=== PATIENT | male | born 1990 | race Caucasian/White ===

== ENCOUNTER 2016-08-14 00:13 | Emergency (ER) | payer MEDICAID ==
[~2016-08-14] VITALS: Ht 177.8 cm; Wt 105.6 kg
[~2016-08-14 00:13] MED LIST: ARIP10TA13 PO; BENZ1TAB61 PO; DIVA500T4 PO; HALO5AMP3 PO; HALO5TAB5 PO; LORA-446 PO; RISP0.2518 PO; RISP2TAB35 PO
[2016-08-14 00:14] VITALS: BP 129/87
== END 2016-08-14 00:59 | disposition home or self-care (01) ==
LOC: ED 00:53
DX: L01.01 Non-bullous impetigo (principal); F20.9 Schizophrenia, unspecified
CPT/HCPCS: 99283

== ENCOUNTER 2016-08-23 14:06 | Emergency (ER) | payer MEDICAID ==
[~2016-08-23] VITALS: Ht 160 cm; Wt 103.5 kg
[2016-08-23 14:08] VITALS: BP 137/86
[2016-08-23] MEDS ORDERED: HYDROcodone/APAP 5/325 TABLET ONE (14:44)
[2016-08-23] MEDS ORDERED: HYDROcodone/APAP 5/325 TABLET PO ONE (15:00)
== END 2016-08-23 15:55 | disposition home or self-care (01) ==
LOC: ED 15:30
DX: S40.022A Contusion of left upper arm, initial encounter (principal); X58.XXXA Exposure to other specified factors, initial encounter; Y93.89 Activity, other specified; Y92.89 Other specified places as the place of occurrence of the external cause; Y99.8 Other external cause status
CPT/HCPCS: 99284

== ENCOUNTER 2017-12-08 02:07 | Emergency (ER) | payer MEDICAID ==
[~2017-12-08] VITALS: Ht 167.6 cm; Wt 108.5 kg
[~2017-12-08 02:07] MED LIST changes: -ARIP10TA13 PO; +ARIP10TA33 PO
[2017-12-08 02:09] VITALS: BP 157/114
[2017-12-08] MEDS ORDERED: ZIPRASIDONE 20 MG INJ IM ONE ×2 (03:00→03:04)
== END 2017-12-08 03:56 | disposition home or self-care (01) ==
LOC: ED 03:00
DX: F41.1 Generalized anxiety disorder (principal)
CPT/HCPCS: 96372; 99283; J3486

== ENCOUNTER 2017-12-13 07:28 | Observation (INO) | payer MEDICAID ==
[~2017-12-13] VITALS: Ht 177.8 cm; Wt 83.0 kg
[2017-12-13] MEDS ORDERED: LORazepam 1MG TABLET ONE (07:52)
[2017-12-13] MEDS ORDERED: ZIPRASIDONE 20 MG INJ IM PRN (08:00)
[2017-12-13] MEDS ORDERED: LORazepam 1MG TABLET PO ONE (08:00)
[2017-12-13 08:06] LABS: BASOPHILS # (AUTO) 0.07 x10^3/uL (0-0.1); BASOPHILS % (AUTO) 1 % (0-1); EOSINOPHILS # (AUTO) 0.08 x10^3/uL (0-0.4); EOSINOPHILS % (AUTO) 1 % (1-7); LYMPHOCYTES # (AUTO) 3.51 x10^3/uL (1-3.4); LYMPHOCYTES % (AUTO) 33 % (22-44); MD NO; MEAN CORPUSCULAR HEMOGLOBIN 29.9 pg (27.5-34.5); MEAN CORPUSCULAR HGB CONC 33.8 g/dL (33.2-36.2); MEAN CORPUSCULAR VOLUME 88.4 fL (81-97); MEAN PLATELET VOLUME 7.5 fL (7.4-10.4); MONOCYTES # (AUTO) 0.77 x10^3/uL (0.2-0.8); MONOCYTES % (AUTO) 7 % (2-9); NEUTROPHILS # (AUTO) 6.11 x10^3/uL (1.8-6.8); NEUTROPHILS % (AUTO) 58 % (42-75); PLATELET COUNT 326 x10^3/uL (130-400); RED BLOOD COUNT 4.97 x10^6/uL (4.38-5.82); RED CELL DISTRIBUTION WIDTH 13.2 % (9.4-14.8)
[2017-12-13 08:19] LABS: ANION GAP 10 mmol/L (5-15); CALCIUM 8.7 mg/dL (8.5-10.1); CHLORIDE 105 mmol/L (98-107); CREATININE 0.91 mg/dL (0.7-1.3)
[2017-12-13 08:20] LABS: ALANINE AMINOTRANSFERASE 35 U/L (12-78); ALBUMIN 3.9 g/dL (3.4-5.0)
[2017-12-13 08:22] LABS: ALKALINE PHOSPHATASE 67 U/L (45-117); BILIRUBIN,TOTAL 0.8 mg/dL (0.2-1.0); TOTAL PROTEIN 7.5 g/dL (6.4-8.2)
[2017-12-13 08:30] LABS: ACETAMINOPHEN < 2 mcg/mL (10-30); SALICYLATE LEVEL < 1.7 mg/dL (2.8-20.0)
[2017-12-13] MEDS ORDERED: ZIPRASIDONE 20MG CAPSULE ONE (13:29)
[2017-12-13] MEDS ORDERED: ZIPRASIDONE 20MG CAPSULE PO ONE (14:00)
[2017-12-13] MEDS ORDERED: ZIPRASIDONE 20MG CAPSULE PO SCH (14:00)
[2017-12-13] MEDS ORDERED: LORazepam 1MG TABLET PO PRN (16:00)
[2017-12-13 23:54] LABS: AMPHETAMINE SCREEN, URINE Positive (Negative); BARBITURATE SCREEN, URINE Negative (Negative); BENZODIAZEPINE SCREEN, URINE Negative (Negative); CANNABINOID SCREEN, URINE Positive (Negative); COCAINE SCREEN, URINE Negative (Negative); METHADONE SCREEN, URINE Negative (Negative); OPIATE SCREEN, URINE Negative (Negative)
[2017-12-14] MEDS ORDERED: ZIPRASIDONE 20 MG INJ IM ONE ×2 (03:14→03:30)
[2017-12-14] MEDS ORDERED: ACETAMINOPHEN 325 MG TABLET PO PRN (11:30)
[2017-12-14] MEDS ORDERED: OLANZAPINE 5 MG TABLET ONE (12:57)
[2017-12-14] MEDS: OLANZAPINE 5 MG TABLET PO PRN (13:05)
[2017-12-14 15:31] VITALS: BP 119/77
[2017-12-14] MEDS ORDERED: FLUO20CA19 PO (16:59)
[2017-12-14] MEDS ORDERED: HYDR25CA94 PO (17:00)
[2017-12-14] MEDS ORDERED: OLAN15TA9 PO (17:02)
[2017-12-14] MEDS ORDERED: RISP2TAB3 PO (17:03)
[2017-12-14 19:30] VITALS: BP 102/70
[2017-12-14] MEDS: ZIPRASIDONE 20 MG INJ IM PRN (19:55)
[2017-12-15] MEDS: ZIPRASIDONE 20 MG INJ IM PRN (03:20)
[2017-12-15 08:00] VITALS: BP 119/86
[2017-12-15] MEDS: OLANZAPINE 5 MG TABLET PO PRN (08:25)
[2017-12-15] MEDS ORDERED: ARIPIPRAZOLE 10 MG TABLET PO SCH (09:00)
== END 2017-12-15 16:00 ==
LOC: ED 08:02 → EDIP 12-14 10:25 → 2N 12-14 15:20
PROVIDERS: ADMIT Hospitalist; ATTEND Hospitalist
DX: F23 Brief psychotic disorder (principal); D72.829 Elevated white blood cell count, unspecified; E87.6 Hypokalemia; F17.200 Nicotine dependence, unspecified, uncomplicated; F25.9 Schizoaffective disorder, unspecified; Z90.49 Acquired absence of other specified parts of digestive tract; Z83.3 Family history of diabetes mellitus
CPT/HCPCS: 36415; 80053; 80307; 80329; 85025; 96372; 99285; G0378; J3486; G0480

== ENCOUNTER 2018-08-03 12:47 | Emergency (ER) | payer MEDICAID ==
[~2018-08-03] VITALS: Ht 175.3 cm; Wt 99.4 kg
[~2018-08-03 12:47] MED LIST changes: +FLUO20CA19 PO; +HYDR25CA94 PO; +OLAN15TA9 PO; +RISP2TAB3 PO
[2018-08-03 12:50] VITALS: BP 121/94
--- NOTE | 2018-08-03 13:00 | NUR ---
I AM ASSUMING CARE OF THIS PT FROM [place] (BEJNAMIN) WHILE SHE ENJOYS A LUNCH BREAK. SBAR REPORT WAS EXCHANGED AT THE BEDSIDE.
[2018-08-03] MEDS ORDERED: LORazepam 1MG TABLET ONE (13:11)
--- NOTE | 2018-08-03 13:22 | NUR ---
PT AMBULATED TO THE RESTROOM WITH A STEADY GAIT. PARENTS ARE AT THE BEDSIDE FOR SUPPORT.
[2018-08-03] MEDS ORDERED: LORazepam 1MG TABLET PO ONE (13:30)
--- NOTE | 2018-08-03 13:59 | NUR ---
pt laying on gurney awake & calm, responds approp to staff, NAD, comfort & calming measures provided, parents at BS, call light within reach.
--- NOTE | 2018-08-03 15:28 | NUR ---
Patient given discharge instructions and they have confirmed that they understand the instructions. Patient ambulatory with steady gait.
== END 2018-08-03 15:29 | disposition home or self-care (01) ==
LOC: EDBD → MERGE 12:47 → ED 14:10
DX: F41.1 Generalized anxiety disorder (principal); F20.9 Schizophrenia, unspecified; F32.9 Major depressive disorder, single episode, unspecified
CPT/HCPCS: 99284

== ENCOUNTER 2018-10-15 08:50 | Emergency (ER) | payer MEDICAID, OTHER ==
[~2018-10-15] VITALS: Ht 175.3 cm; Wt 95.9 kg
[2018-10-19 08:43] VITALS: BP 110/69
== END 2018-10-19 15:09 | disposition home or self-care (01) ==
LOC: ED 09:21
DX: F15.151 Other stimulant abuse with stimulant-induced psychotic disorder with hallucinations (principal); F20.9 Schizophrenia, unspecified
CPT/HCPCS: 36415; 80053; 80307; 85025; 93005; 96372; 99284; J3486

== ENCOUNTER 2019-04-30 22:47 | Emergency (ER) | payer MEDICAID ==
[~2019-04-30] VITALS: Ht 182.9 cm; Wt 97.2 kg
[2019-04-30 22:56] VITALS: BP 140/71
--- NOTE | 2019-04-30 23:40 | NUR ---
late entry: pt left with no dc paperwork after talking to md.
== END 2019-04-30 23:41 | disposition home or self-care (01) ==
LOC: ED 22:55
DX: F20.1 Disorganized schizophrenia (principal)
CPT/HCPCS: 99283

== ENCOUNTER 2019-05-01 00:11 | Emergency (ER) | payer MEDICAID ==
[~2019-05-01] VITALS: Ht 180.3 cm; Wt 80.0 kg
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
--- NOTE | 2019-05-01 00:34 | NUR ---
ONE BAG PLACED IN LOCKER
--- NOTE | 2019-05-01 01:01 | NUR ---
BREAK RN: REPORT FROM BENJAMIN SOLIMAN; PT. MOVED TO ED 40. ROOM SECURED. SITTER IN HICKS. PT. REMAINS IN RESTRAINTS AT THIS TIME. NO DISTRESS NOTED. RESPIRAITONS EVEN, NON-LABORED. JJ ALVAREZ IN TO EVAL PT. AND DETERMINE POC.
--- NOTE | 2019-05-01 01:06 | NUR ---
CONTACTED SECURITY TO REMOVE RESTRAINTS AT THIS TIME PER JJ ALVAREZ ORDERS. SECURITY TO BEDSIDE NOW.
--- NOTE | 2019-05-01 01:09 | NUR ---
RESTRAINTS HAVE BEEN REMOVED PER ORDER; PT. COOPERATIVE WITH STAFF AT THIS TIME.
--- NOTE | 2019-05-01 01:20 | NUR ---
REPORT TO BENJAMIN MONTES TO ASSUME PRIMARY CARE OF PT.
[2019-05-01 01:53] LABS: BASOPHILS # (AUTO) 0.04 x10^3/uL (0-0.1); BASOPHILS % (AUTO) 0 % (0-1); EOSINOPHILS # (AUTO) 0.24 x10^3/uL (0-0.4); EOSINOPHILS % (AUTO) 2 % (1-7); LYMPHOCYTES # (AUTO) 3.39 x10^3/uL (1-3.4); LYMPHOCYTES % (AUTO) 34 % (22-44); MD NO; MEAN CORPUSCULAR HEMOGLOBIN 29.7 pg (27.5-34.5); MEAN CORPUSCULAR HGB CONC 33.4 g/dL (33.2-36.2); MEAN CORPUSCULAR VOLUME 88.8 fL (81-97); MEAN PLATELET VOLUME 7.7 fL (7.4-10.4); MONOCYTES # (AUTO) 0.72 x10^3/uL (0.2-0.8); MONOCYTES % (AUTO) 7 % (2-9); NEUTROPHILS # (AUTO) 5.72 x10^3/uL (1.8-6.8); NEUTROPHILS % (AUTO) 57 % (42-75); PLATELET COUNT 277 x10^3/uL (130-400); RED BLOOD COUNT 4.68 x10^6/uL (4.38-5.82)
[2019-05-01 01:55] LABS: AMPHETAMINE SCREEN, URINE Negative (Negative); BARBITURATE SCREEN, URINE Negative (Negative); BENZODIAZEPINE SCREEN, URINE Negative (Negative); CANNABINOID SCREEN, URINE Negative (Negative); COCAINE SCREEN, URINE Negative (Negative); METHADONE SCREEN, URINE Negative (Negative); OPIATE SCREEN, URINE Negative (Negative)
[2019-05-01 02:06] LABS: ALANINE AMINOTRANSFERASE 31 U/L (12-78); ALBUMIN 3.7 g/dL (3.4-5.0); ANION GAP 6 mmol/L (5-15); CALCIUM 8.4 mg/dL (8.5-10.1); CHLORIDE 109 mmol/L (98-107); CREATININE 0.83 mg/dL (0.7-1.3); SALICYLATE LEVEL 1.9 mg/dL (2.8-20.0)
[2019-05-01 02:08] LABS: ALKALINE PHOSPHATASE 71 U/L (45-117); BILIRUBIN,TOTAL 0.2 mg/dL (0.2-1.0); TOTAL PROTEIN 6.8 g/dL (6.4-8.2)
[2019-05-01 03:56] VITALS: BP 119/74
--- NOTE | 2019-05-01 04:02 | NUR ---
PT RESTING IN BED WITH, PT A/O X4 WITH SITTER AT PT SIDE. PT ROOM SI SECURED.
--- NOTE | 2019-05-01 06:33 | NUR ---
PT RESTING IN BED WITHEYES CLOSED, PT A/O X4 WITH SITTER AT PT SIDE. PT ROOM SI SECURED.
--- NOTE | 2019-05-01 07:00 | NUR ---
REPORT RECIEVED FROM MILAN ALEXANDER. PT RESTING ON GURNEY AT THIS TIME, VISIBLE CHEST RISE AND FALL NOTED. NAD AT THIS TIME. MEAL TRAY ORDERED
--- NOTE | 2019-05-01 08:28 | NUR ---
PT PROVIDED WITH MEAL TRAY, PT REFUSING TO EAT MEAL AT THIS TIME, PULLING BLANKET OVER FACE.
--- NOTE | 2019-05-01 09:58 | NUR ---
PT CONTINUES TO SLEEP ON GURNEY, DECLINED MEAL TRAY AGAIN. AWAITING TELEPSYCH
--- NOTE | 2019-05-01 11:35 | NUR ---
PSYCH SECOND BAKER IN TO EVAL PT. PT NOW LEGAL HOLD. LUNCH TRAY ORDERED. PROVIDER GIVEN FATHERS NUMBER FROM BELONGINGS BAG
--- NOTE | 2019-05-01 14:30 | NUR ---
PT AMBULATED TO BR, STEADY GAIT NOTED. BACK TO [facility] AT THIS TIME, PT DENIES NEEDS
--- NOTE | 2019-05-01 16:02 | NUR ---
REPORT GIVEN TO YAMILETH SEAMAN RN
--- NOTE | 2019-05-01 16:30 | NUR ---
ALL BELONGINGS GIVEN TO RODRIGUEZ
== END 2019-05-01 16:29 | disposition home or self-care (01) ==
LOC: ED 00:38
DX: F32.9 Major depressive disorder, single episode, unspecified (principal); F20.9 Schizophrenia, unspecified; F17.200 Nicotine dependence, unspecified, uncomplicated
CPT/HCPCS: 36415; 80053; 80307; 85025; 99284

== ENCOUNTER 2019-06-30 03:18 | Emergency (ER) | payer MEDICAID ==
[~2019-06-30] VITALS: Ht 180.3 cm; Wt 95.0 kg
--- NOTE | 2019-06-30 03:33 | NUR ---
PT BIB [facility] AFTER BEING FOUND AT 09/14 STATING THAT HE WAS GOING TO HAVE A SEIZURE. PT W/NO PRIOR HISTORY OF SZ. PT HAVING FLIGHTS OF IDEAS AND STATES THAT VOICES TOLD HIM THAT HIS PUPILS TWITCHED WHICH MEANT HE WAS GOING TO START SEIZING.
[2019-06-30 03:39] LABS: BASOPHILS # (AUTO) 0.05 x10^3/uL (0-0.1); BASOPHILS % (AUTO) 1 % (0-1); EOSINOPHILS # (AUTO) 0.24 x10^3/uL (0-0.4); EOSINOPHILS % (AUTO) 3 % (1-7); LYMPHOCYTES # (AUTO) 3.29 x10^3/uL (1-3.4); LYMPHOCYTES % (AUTO) 40 % (22-44); MD NO; MEAN CORPUSCULAR HEMOGLOBIN 29.4 pg (27.5-34.5); MEAN CORPUSCULAR HGB CONC 33.1 g/dL (33.2-36.2); MEAN CORPUSCULAR VOLUME 89.1 fL (81-97); MEAN PLATELET VOLUME 7.1 fL (7.4-10.4); MONOCYTES # (AUTO) 0.76 x10^3/uL (0.2-0.8); MONOCYTES % (AUTO) 9 % (2-9); NEUTROPHILS # (AUTO) 3.87 x10^3/uL (1.8-6.8); NEUTROPHILS % (AUTO) 47 % (42-75); PLATELET COUNT 281 x10^3/uL (130-400); RED BLOOD COUNT 4.47 x10^6/uL (4.38-5.82); RED CELL DISTRIBUTION WIDTH 13.5 % (9.4-14.8)
--- NOTE | 2019-06-30 03:39 | NUR ---
PT IS ANXIOUS IN [facility] AT THIS TIME. PT PROVIDED WITH SNACK OF ASHVIN CRACKERS AND PEANUT BUTTER.
[2019-06-30 03:53] LABS: ALBUMIN 3.4 g/dL (3.4-5.0); ANION GAP 5 mmol/L (5-15); CALCIUM 8.5 mg/dL (8.5-10.1); CHLORIDE 109 mmol/L (98-107); CREATININE 0.83 mg/dL (0.7-1.3); SALICYLATE LEVEL 3.4 mg/dL (2.8-20.0)
--- NOTE | 2019-06-30 04:19 | NUR ---
PT ASLEEP IN [facility] AT THIS TIME; MADHU. VSS. AWAITING RESULTS OF LAB AND PHONE CALL BACK FROM PARENTS AT THIS TIME.
--- NOTE | 2019-06-30 07:00 | NUR ---
REPORT RECIEVED FROM BETI ALEXANDER. PT RESTING IN BED CALL LIGHT IN REACH
--- NOTE | 2019-06-30 08:06 | NUR ---
pt resting in bed, call light in reach.
[2019-06-30 08:38] VITALS: BP 117/66
--- NOTE | 2019-06-30 09:54 | NUR ---
NO SI/SA. PT A&O, DISCHARGE INSTRUCTIONS REVIEWED.
== END 2019-06-30 09:54 | disposition home or self-care (01) ==
LOC: ED 09:33
DX: F41.9 Anxiety disorder, unspecified (principal); Z72.9 Problem related to lifestyle, unspecified
CPT/HCPCS: 36415; 80048; 80307; 82040; 82140; 85025; 99283

== ENCOUNTER 2019-08-16 07:58 | Inpatient (IN) | payer MEDICAID ==
[~2019-08-16] VITALS: Ht 177.8 cm; Wt 91.0 kg
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
--- NOTE | 2019-08-16 08:40 | NUR ---
RECEIVED REPOT FROM BREANN ALEXANDER. PT MOVED TO ROOM 40 IN DIRECT VIEW OF SITTER. BELONGINGS ALREADY IN LOCKER. ROOM EQUIPMENT BEHIND PULL DOWN DOORS.
[2019-08-16 09:04] LABS: MICROSCOPIC NOT IND
[2019-08-16 09:18] LABS: AMPHETAMINE SCREEN, URINE Negative (Negative); BARBITURATE SCREEN, URINE Negative (Negative); BENZODIAZEPINE SCREEN, URINE Negative (Negative); CANNABINOID SCREEN, URINE Positive (Negative); COCAINE SCREEN, URINE Negative (Negative); METHADONE SCREEN, URINE Negative (Negative); OPIATE SCREEN, URINE Negative (Negative)
[2019-08-16 09:42] LABS: BASOPHILS # (AUTO) 0.04 x10^3/uL (0-0.1); BASOPHILS % (AUTO) 1 % (0-1); EOSINOPHILS # (AUTO) 0.02 x10^3/uL (0-0.4); EOSINOPHILS % (AUTO) 0 % (1-7); LYMPHOCYTES # (AUTO) 1.62 x10^3/uL (1-3.4); LYMPHOCYTES % (AUTO) 20 % (22-44); MD NO; MEAN CORPUSCULAR HGB CONC 33.3 g/dL (33.2-36.2); MEAN CORPUSCULAR VOLUME 87.2 fL (81-97); MEAN PLATELET VOLUME 7.7 fL (7.4-10.4); MONOCYTES # (AUTO) 0.68 x10^3/uL (0.2-0.8); MONOCYTES % (AUTO) 9 % (2-9); NEUTROPHILS # (AUTO) 5.62 x10^3/uL (1.8-6.8); NEUTROPHILS % (AUTO) 71 % (42-75); PLATELET COUNT 280 x10^3/uL (130-400); RED BLOOD COUNT 4.46 x10^6/uL (4.38-5.82); RED CELL DISTRIBUTION WIDTH 13.4 % (9.4-14.8)
[2019-08-16 09:45] LABS: ALBUMIN 3.9 g/dL (3.4-5.0); ANION GAP 10 mmol/L (5-15); CALCIUM 9.4 mg/dL (8.5-10.1); CHLORIDE 108 mmol/L (98-107); CREATININE 0.92 mg/dL (0.7-1.3)
[2019-08-16 09:46] LABS: SALICYLATE LEVEL 1.7 mg/dL (2.8-20.0)
--- NOTE | 2019-08-16 10:01 | NUR ---
PT RESTING WITH EYES CLOSED
--- NOTE | 2019-08-16 11:27 | NUR ---
AFTER MD ANDERSON PT TO BE ADMITTED FOR CELLULITIS. PT RESTING WITH EYES CLOSED.
[2019-08-16] MEDS ORDERED: SODIUM CHLORIDE FLUSH 10ML SYR IVF ONE (11:30)
--- NOTE | 2019-08-16 11:40 | NUR ---
AWAITING ANY FURTHER ORDERS FROM HOSPTIALIST. IV ESTABLISHED. PT DROWSY, COOPERATIVE.
--- NOTE | 2019-08-16 11:47 | NUR ---
THROUGHPUT RN: PT WITH [facility] INSURANCE. SPOKE W/ AMAIRANI FROM [facility] WHO DECLINED TRANSFER. SPOKE W/ MARCO FROM [facility] WHO DECLINED TRANSFER. PSN FAXED TO [phone]. CONFIRMATION RECEIVED.
[2019-08-16] MEDS ORDERED: DOCUSATE 100 MG CAPSULE PO PRN (12:30)
[2019-08-16] MEDS ORDERED: ONDANSETRON 2MG/ML, 2ML IVPush PRN (12:30)
[2019-08-16] MEDS ORDERED: VANCOMYCIN PER PHARMACY MC PRN (12:30)
[2019-08-16] MEDS ORDERED: VANCOMYCIN PMX 1GM/200ML 200 ML IV ONE (12:30)
[2019-08-16] MEDS ORDERED: POLYETHYLENE GLYCOL 17 GM PACKET PO PRN (12:30)
--- NOTE | 2019-08-16 12:33 | NUR ---
REPORT TO MELQUIADES ALEXANDER. PT TO BE TRANSFERRED TO FLOOR WITH [facility].
[2019-08-16] MEDS: AMPICILLIN/SULBACTAM 3 GM in SODIUM CHLORIDE 0.9% 100 ML IV SCH ×2 (13:24→18:21)
[2019-08-16] MEDS ORDERED: PHARMACOKINETIC CONSULTATION MC ONE (14:00)
[2019-08-16] MEDS ORDERED: PHARMACOKINETIC MONITORING MC PRN (14:00)
[2019-08-16] MEDS: VANCOMYCIN 1,800 MG in SODIUM CHLORIDE 0.9% 250 ML IV SCH ×2 (14:18→21:36)
[2019-08-16 14:20] VITALS: BP 104/69
[2019-08-16] MEDS: ENOXAPARIN 40 MG/0.4 ML SQ SCH (15:02)
[2019-08-16] MEDS: NICOTINE 21 MG/24 HR PATCH.TD24 TD SCH (15:02)
[2019-08-16 20:17] VITALS: BP 111/74
[2019-08-17] MEDS: AMPICILLIN/SULBACTAM 3 GM in SODIUM CHLORIDE 0.9% 100 ML IV SCH ×4 (00:21→19:29)
[2019-08-17 00:29] VITALS: BP 96/58
[2019-08-17] MEDS: VANCOMYCIN 1,800 MG in SODIUM CHLORIDE 0.9% 250 ML IV SCH ×3 (06:08→22:11)
[2019-08-17 10:07] VITALS: BP 121/75
[2019-08-17] MEDS: NICOTINE 21 MG/24 HR PATCH.TD24 TD SCH (12:09)
[2019-08-17] MEDS: ENOXAPARIN 40 MG/0.4 ML SQ SCH (12:09)
[2019-08-17 12:55] VITALS: BP 106/67
[2019-08-17 13:00] LABS: ALBUMIN 3.5 g/dL (3.4-5.0); ANION GAP 6 mmol/L (5-15); BASOPHILS # (AUTO) 0.04 x10^3/uL (0-0.1); BASOPHILS % (AUTO) 1 % (0-1); CALCIUM 8.5 mg/dL (8.5-10.1); CHLORIDE 108 mmol/L (98-107); EOSINOPHILS # (AUTO) 0.03 x10^3/uL (0-0.4); EOSINOPHILS % (AUTO) 1 % (1-7); HCT (SEDRATE) 39.9 % (39.2-51.8); LYMPHOCYTES # (AUTO) 1.37 x10^3/uL (1-3.4); LYMPHOCYTES % (AUTO) 24 % (22-44); MD NO; MEAN CORPUSCULAR HEMOGLOBIN 28.9 pg (27.5-34.5); MEAN CORPUSCULAR HGB CONC 32.4 g/dL (33.2-36.2); MEAN CORPUSCULAR VOLUME 89.1 fL (81-97); MEAN PLATELET VOLUME 7.9 fL (7.4-10.4); MONOCYTES # (AUTO) 0.57 x10^3/uL (0.2-0.8); MONOCYTES % (AUTO) 10 % (2-9); NEUTROPHILS # (AUTO) 3.77 x10^3/uL (1.8-6.8); NEUTROPHILS % (AUTO) 65 % (42-75); PLATELET COUNT 258 x10^3/uL (130-400); RED BLOOD COUNT 4.48 x10^6/uL (4.38-5.82); RED CELL DISTRIBUTION WIDTH 13.5 % (9.4-14.8)
[2019-08-17 13:11] LABS: ALANINE AMINOTRANSFERASE 22 U/L (12-78); ALKALINE PHOSPHATASE 196 U/L (45-117); BILIRUBIN,TOTAL 0.6 mg/dL (0.2-1.0); C-REACTIVE PROTEIN, QUANT 0.86 mg/dL (0.02-0.49); CREATININE 0.84 mg/dL (0.7-1.3)
[2019-08-17] MEDS: ACETAMINOPHEN 325 MG TABLET PO PRN (16:09)
[2019-08-17 18:33] VITALS: BP 115/69
[2019-08-17] MEDS: GABAPENTIN 300 MG CAPSULE PO PRN (19:40)
[2019-08-18] MEDS: AMPICILLIN/SULBACTAM 3 GM in SODIUM CHLORIDE 0.9% 100 ML IV SCH ×4 (00:34→19:27)
[2019-08-18] MEDS: VANCOMYCIN 1,800 MG in SODIUM CHLORIDE 0.9% 250 ML IV SCH ×3 (05:27→22:06)
[2019-08-18 06:01] LABS: BASOPHILS # (AUTO) 0.05 x10^3/uL (0-0.1); BASOPHILS % (AUTO) 1 % (0-1); EOSINOPHILS # (AUTO) 0.16 x10^3/uL (0-0.4); EOSINOPHILS % (AUTO) 2 % (1-7); LYMPHOCYTES # (AUTO) 1.99 x10^3/uL (1-3.4); LYMPHOCYTES % (AUTO) 30 % (22-44); MD NO; MEAN CORPUSCULAR HEMOGLOBIN 29.3 pg (27.5-34.5); MEAN CORPUSCULAR HGB CONC 32.7 g/dL (33.2-36.2); MEAN CORPUSCULAR VOLUME 89.6 fL (81-97); MEAN PLATELET VOLUME 8.3 fL (7.4-10.4); MONOCYTES # (AUTO) 0.67 x10^3/uL (0.2-0.8); MONOCYTES % (AUTO) 10 % (2-9); NEUTROPHILS # (AUTO) 3.84 x10^3/uL (1.8-6.8); NEUTROPHILS % (AUTO) 57 % (42-75); PLATELET COUNT 239 x10^3/uL (130-400); RED BLOOD COUNT 4.21 x10^6/uL (4.38-5.82); RED CELL DISTRIBUTION WIDTH 13.7 % (9.4-14.8)
[2019-08-18 06:08] LABS: ANION GAP 4 mmol/L (5-15); CALCIUM 8.4 mg/dL (8.5-10.1); CHLORIDE 113 mmol/L (98-107); CREATININE 0.73 mg/dL (0.7-1.3)
[2019-08-18 06:24] VITALS: BP 109/72
[2019-08-18] MEDS: ENOXAPARIN 40 MG/0.4 ML SQ SCH (12:24)
[2019-08-18] MEDS: NICOTINE 21 MG/24 HR PATCH.TD24 TD SCH (12:24)
[2019-08-18 12:38] VITALS: BP 100/60
[2019-08-18 20:28] VITALS: BP 126/85
[2019-08-19] MEDS: AMPICILLIN/SULBACTAM 3 GM in SODIUM CHLORIDE 0.9% 100 ML IV SCH ×4 (01:11→19:52)
[2019-08-19 02:46] VITALS: BP 105/76
[2019-08-19] MEDS: VANCOMYCIN 1,800 MG in SODIUM CHLORIDE 0.9% 250 ML IV SCH ×3 (06:07→21:49)
[2019-08-19 09:59] VITALS: BP 107/71
[2019-08-19] MEDS: NICOTINE 21 MG/24 HR PATCH.TD24 TD SCH (11:27)
[2019-08-19] MEDS: ENOXAPARIN 40 MG/0.4 ML SQ SCH (11:27)
[2019-08-19 11:39] LABS: BASOPHILS # (AUTO) 0.04 x10^3/uL (0-0.1); BASOPHILS % (AUTO) 1 % (0-1); EOSINOPHILS # (AUTO) 0.12 x10^3/uL (0-0.4); EOSINOPHILS % (AUTO) 2 % (1-7); LYMPHOCYTES # (AUTO) 1.59 x10^3/uL (1-3.4); LYMPHOCYTES % (AUTO) 29 % (22-44); MD NO; MEAN CORPUSCULAR HEMOGLOBIN 29.1 pg (27.5-34.5); MEAN CORPUSCULAR HGB CONC 32.7 g/dL (33.2-36.2); MEAN CORPUSCULAR VOLUME 88.7 fL (81-97); MEAN PLATELET VOLUME 7.5 fL (7.4-10.4); MONOCYTES # (AUTO) 0.57 x10^3/uL (0.2-0.8); MONOCYTES % (AUTO) 10 % (2-9); NEUTROPHILS # (AUTO) 3.25 x10^3/uL (1.8-6.8); NEUTROPHILS % (AUTO) 58 % (42-75); PLATELET COUNT 284 x10^3/uL (130-400); RED BLOOD COUNT 4.53 x10^6/uL (4.38-5.82); RED CELL DISTRIBUTION WIDTH 13.3 % (9.4-14.8)
[2019-08-19 11:45] LABS: CHLORIDE 110 mmol/L (98-107)
[2019-08-19 11:49] LABS: ANION GAP 5 mmol/L (5-15); CALCIUM 9.1 mg/dL (8.5-10.1); CREATININE 0.79 mg/dL (0.7-1.3)
[2019-08-19] MEDS ORDERED: ZIPRASIDONE 20 MG INJ IM ONE ×2 (12:05→12:30)
[2019-08-19 14:10] VITALS: BP 110/68
[2019-08-19 20:33] VITALS: BP 111/71
[2019-08-19] MEDS: CEFDINIR 300 MG CAPSULE PO SCH (21:00)
[2019-08-19] MEDS: LINEZOLID 600 MG TABLET PO SCH (21:00)
[2019-08-20 01:02] VITALS: BP 102/67
[2019-08-20] MEDS: AMPICILLIN/SULBACTAM 3 GM in SODIUM CHLORIDE 0.9% 100 ML IV SCH ×4 (02:04→19:41)
[2019-08-20] MEDS: VANCOMYCIN 1,800 MG in SODIUM CHLORIDE 0.9% 250 ML IV SCH ×3 (06:15→22:58)
[2019-08-20 07:01] VITALS: BP 102/66
[2019-08-20 08:15] LABS: BASOPHILS # (AUTO) 0.03 x10^3/uL (0-0.1); BASOPHILS % (AUTO) 1 % (0-1); EOSINOPHILS # (AUTO) 0.28 x10^3/uL (0-0.4); EOSINOPHILS % (AUTO) 4 % (1-7); LYMPHOCYTES # (AUTO) 2.13 x10^3/uL (1-3.4); LYMPHOCYTES % (AUTO) 33 % (22-44); MD NO; MEAN CORPUSCULAR HEMOGLOBIN 29.2 pg (27.5-34.5); MEAN CORPUSCULAR HGB CONC 32.9 g/dL (33.2-36.2); MEAN CORPUSCULAR VOLUME 88.5 fL (81-97); MEAN PLATELET VOLUME 8.2 fL (7.4-10.4); MONOCYTES # (AUTO) 0.56 x10^3/uL (0.2-0.8); MONOCYTES % (AUTO) 9 % (2-9); NEUTROPHILS # (AUTO) 3.38 x10^3/uL (1.8-6.8); NEUTROPHILS % (AUTO) 53 % (42-75); PLATELET COUNT 253 x10^3/uL (130-400); RED BLOOD COUNT 4.29 x10^6/uL (4.38-5.82); RED CELL DISTRIBUTION WIDTH 13.7 % (9.4-14.8)
[2019-08-20 08:19] LABS: ANION GAP 3 mmol/L (5-15); CALCIUM 8.7 mg/dL (8.5-10.1); CHLORIDE 112 mmol/L (98-107); CREATININE 0.79 mg/dL (0.7-1.3)
[2019-08-20] MEDS: LINEZOLID 600 MG TABLET PO SCH ×2 (09:00→19:43)
[2019-08-20] MEDS: CEFDINIR 300 MG CAPSULE PO SCH ×2 (09:00→19:43)
[2019-08-20] MEDS: NICOTINE 21 MG/24 HR PATCH.TD24 TD SCH (12:19)
[2019-08-20] MEDS: ENOXAPARIN 40 MG/0.4 ML SQ SCH (12:30)
[2019-08-20] MEDS ORDERED: HALOPERIDOL 5 MG/ML ONE (13:06)
[2019-08-20] MEDS: DIPHENHYDRAMINE 50 MG/ML, 1ML IM PRN (13:19)
[2019-08-20] MEDS ORDERED: HALOPERIDOL 5 MG/ML IM ONE (13:30)
[2019-08-20] MEDS ORDERED: LORazepam 2 MG/ML, 1ML IM PRN (13:30)
[2019-08-21 00:56] VITALS: BP 112/76
[2019-08-21] MEDS: AMPICILLIN/SULBACTAM 3 GM in SODIUM CHLORIDE 0.9% 100 ML IV SCH ×4 (01:45→22:35)
[2019-08-21] MEDS: LORazepam 2 MG/ML, 1ML IV PRN ×3 (05:04→20:53)
[2019-08-21] MEDS: VANCOMYCIN 1,800 MG in SODIUM CHLORIDE 0.9% 250 ML IV SCH ×3 (06:39→23:43)
[2019-08-21] MEDS ORDERED: LORazepam 2 MG/ML, 1ML IV PRN (07:30)
[2019-08-21 07:59] VITALS: BP 108/73
[2019-08-21] MEDS: CEFDINIR 300 MG CAPSULE PO SCH ×2 (08:30→08:52)
[2019-08-21] MEDS: LINEZOLID 600 MG TABLET PO SCH ×2 (08:30→08:52)
[2019-08-21 12:20] VITALS: BP 122/75
[2019-08-21] MEDS: ENOXAPARIN 40 MG/0.4 ML SQ SCH (13:07)
[2019-08-21] MEDS: NICOTINE 21 MG/24 HR PATCH.TD24 TD SCH (13:07)
[2019-08-21 19:43] VITALS: BP 105/67
[2019-08-22] MEDS: AMPICILLIN/SULBACTAM 3 GM in SODIUM CHLORIDE 0.9% 100 ML IV SCH ×4 (05:26→22:52)
[2019-08-22 05:43] LABS: ANION GAP 5 mmol/L (5-15); CALCIUM 8.9 mg/dL (8.5-10.1); CHLORIDE 109 mmol/L (98-107)
[2019-08-22 05:44] LABS: CREATININE 0.87 mg/dL (0.7-1.3)
[2019-08-22 05:47] LABS: BASOPHILS # (AUTO) 0.04 x10^3/uL (0-0.1); BASOPHILS % (AUTO) 1 % (0-1); EOSINOPHILS # (AUTO) 0.21 x10^3/uL (0-0.4); EOSINOPHILS % (AUTO) 4 % (1-7); LYMPHOCYTES # (AUTO) 2.08 x10^3/uL (1-3.4); LYMPHOCYTES % (AUTO) 36 % (22-44); MD NO; MEAN CORPUSCULAR HEMOGLOBIN 28.6 pg (27.5-34.5); MEAN CORPUSCULAR HGB CONC 32.5 g/dL (33.2-36.2); MEAN PLATELET VOLUME 8.5 fL (7.4-10.4); MONOCYTES # (AUTO) 0.54 x10^3/uL (0.2-0.8); MONOCYTES % (AUTO) 10 % (2-9); NEUTROPHILS # (AUTO) 2.84 x10^3/uL (1.8-6.8); NEUTROPHILS % (AUTO) 50 % (42-75); PLATELET COUNT 237 x10^3/uL (130-400); RED BLOOD COUNT 4.52 x10^6/uL (4.38-5.82); RED CELL DISTRIBUTION WIDTH 13.4 % (9.4-14.8)
[2019-08-22] MEDS: VANCOMYCIN 1,800 MG in SODIUM CHLORIDE 0.9% 250 ML IV SCH ×3 (08:09→23:38)
[2019-08-22 09:25] VITALS: BP 97/60
[2019-08-22] MEDS: ENOXAPARIN 40 MG/0.4 ML SQ SCH (11:11)
[2019-08-22] MEDS: NICOTINE 21 MG/24 HR PATCH.TD24 TD SCH (11:11)
[2019-08-22] MEDS: LORazepam 2 MG/ML, 1ML IV PRN ×2 (12:59→20:08)
[2019-08-22 14:56] VITALS: BP 109/70
[2019-08-22 19:32] VITALS: BP 112/72
[2019-08-23 02:03] VITALS: BP 107/69
[2019-08-23] MEDS: AMPICILLIN/SULBACTAM 3 GM in SODIUM CHLORIDE 0.9% 100 ML IV SCH ×3 (05:01→22:56)
[2019-08-23 07:25] LABS: BASOPHILS # (AUTO) 0.03 x10^3/uL (0-0.1); BASOPHILS % (AUTO) 1 % (0-1); EOSINOPHILS # (AUTO) 0.18 x10^3/uL (0-0.4); EOSINOPHILS % (AUTO) 3 % (1-7); LYMPHOCYTES % (AUTO) 31 % (22-44); MD NO; MEAN CORPUSCULAR HEMOGLOBIN 29.3 pg (27.5-34.5); MEAN CORPUSCULAR VOLUME 88.9 fL (81-97); MONOCYTES # (AUTO) 0.62 x10^3/uL (0.2-0.8); MONOCYTES % (AUTO) 11 % (2-9); NEUTROPHILS # (AUTO) 2.98 x10^3/uL (1.8-6.8); NEUTROPHILS % (AUTO) 54 % (42-75); PLATELET COUNT 236 x10^3/uL (130-400); RED BLOOD COUNT 4.45 x10^6/uL (4.38-5.82); RED CELL DISTRIBUTION WIDTH 13.7 % (9.4-14.8)
[2019-08-23 07:37] LABS: ANION GAP 7 mmol/L (5-15); CALCIUM 8.8 mg/dL (8.5-10.1); CHLORIDE 110 mmol/L (98-107)
[2019-08-23 07:39] LABS: CREATININE 0.72 mg/dL (0.7-1.3)
[2019-08-23 07:52] VITALS: BP 91/65
[2019-08-23] MEDS: VANCOMYCIN 1,800 MG in SODIUM CHLORIDE 0.9% 250 ML IV SCH ×2 (08:59→21:11)
[2019-08-23 11:25] VITALS: BP 104/72
[2019-08-23] MEDS: ENOXAPARIN 40 MG/0.4 ML SQ SCH (12:30)
[2019-08-23] MEDS: NICOTINE 21 MG/24 HR PATCH.TD24 TD SCH (12:30)
[2019-08-23] MEDS: LORazepam 2 MG/ML, 1ML IV PRN (13:05)
[2019-08-23 13:12] VITALS: BP 107/68
[2019-08-23 13:34] VITALS: BP 107/71
[2019-08-23] MEDS: DIPHENHYDRAMINE 50 MG/ML, 1ML IM PRN (13:40)
[2019-08-23 20:18] VITALS: BP 102/64
[2019-08-23] MEDS: RISPERIDONE 1 MG TABLET PO SCH (20:20)
[2019-08-24 02:46] VITALS: BP 100/65
[2019-08-24] MEDS: AMPICILLIN/SULBACTAM 3 GM in SODIUM CHLORIDE 0.9% 100 ML IV SCH ×5 (04:30→23:20)
[2019-08-24] MEDS: VANCOMYCIN 1,800 MG in SODIUM CHLORIDE 0.9% 250 ML IV SCH ×3 (05:09→21:22)
[2019-08-24 07:32] VITALS: BP 100/69
[2019-08-24] MEDS: RISPERIDONE 1 MG TABLET PO SCH ×2 (08:52→10:25)
[2019-08-24 09:02] VITALS: BP 103/67
[2019-08-24 12:24] VITALS: BP 104/66
[2019-08-24] MEDS: ENOXAPARIN 40 MG/0.4 ML SQ SCH (13:04)
[2019-08-24] MEDS: NICOTINE 21 MG/24 HR PATCH.TD24 TD SCH (13:04)
[2019-08-24] MEDS ORDERED: DIPHENHYDRAMINE 50 MG CAPSULE PO ONE (16:30)
[2019-08-24 19:31] VITALS: BP 100/61
[2019-08-24 21:22] VITALS: BP 102/66
[2019-08-24] MEDS: BENZTROPINE 1 MG TABLET PO SCH (21:23)
[2019-08-25 01:36] VITALS: BP 99/63
[2019-08-25] MEDS: AMPICILLIN/SULBACTAM 3 GM in SODIUM CHLORIDE 0.9% 100 ML IV SCH ×4 (04:52→23:15)
[2019-08-25 05:19] LABS: BASOPHILS % (AUTO) 1 % (0-1); EOSINOPHILS % (AUTO) 4 % (1-7); LYMPHOCYTES % (AUTO) 44 % (22-44); MEAN CORPUSCULAR HEMOGLOBIN 28.9 pg (27.5-34.5); MEAN CORPUSCULAR HGB CONC 32.7 g/dL (33.2-36.2); MEAN CORPUSCULAR VOLUME 88.4 fL (81-97); MEAN PLATELET VOLUME 7.9 fL (7.4-10.4); MONOCYTES % (AUTO) 15 % (2-9); NEUTROPHILS # (AUTO) 2.16 x10^3/uL (1.8-6.8); NEUTROPHILS % (AUTO) 37 % (42-75); PLATELET COUNT 237 x10^3/uL (130-400); RED BLOOD COUNT 4.69 x10^6/uL (4.38-5.82); RED CELL DISTRIBUTION WIDTH 13.2 % (9.4-14.8)
[2019-08-25 05:20] LABS: BASOPHILS # (AUTO) 0.05 x10^3/uL (0-0.1); EOSINOPHILS # (AUTO) 0.23 x10^3/uL (0-0.4); LYMPHOCYTES # (AUTO) 2.57 x10^3/uL (1-3.4); MD NO; MONOCYTES # (AUTO) 0.89 x10^3/uL (0.2-0.8)
[2019-08-25 05:31] LABS: ANION GAP 6 mmol/L (5-15); CHLORIDE 107 mmol/L (98-107)
[2019-08-25 05:34] LABS: CREATININE 0.79 mg/dL (0.7-1.3)
[2019-08-25] MEDS: VANCOMYCIN 1,800 MG in SODIUM CHLORIDE 0.9% 250 ML IV SCH ×3 (05:36→21:31)
[2019-08-25 07:45] VITALS: BP 120/80
[2019-08-25] MEDS: PALIPERIDONE 3 MG TAB.ER.24 PO SCH (08:54)
[2019-08-25] MEDS: NICOTINE 21 MG/24 HR PATCH.TD24 TD SCH (11:34)
[2019-08-25] MEDS: ENOXAPARIN 40 MG/0.4 ML SQ SCH (11:34)
[2019-08-25 13:07] VITALS: BP 119/67
[2019-08-25 19:58] VITALS: BP 120/82
[2019-08-25] MEDS: BENZTROPINE 1 MG TABLET PO SCH (20:25)
[2019-08-26 00:22] VITALS: BP 115/78
[2019-08-26] MEDS: GABAPENTIN 300 MG CAPSULE PO PRN (03:44)
[2019-08-26] MEDS: AMPICILLIN/SULBACTAM 3 GM in SODIUM CHLORIDE 0.9% 100 ML IV SCH ×3 (05:15→17:50)
[2019-08-26] MEDS: VANCOMYCIN 1,800 MG in SODIUM CHLORIDE 0.9% 250 ML IV SCH ×3 (05:51→21:00)
[2019-08-26 08:00] VITALS: BP 113/74
[2019-08-26] MEDS: PALIPERIDONE 3 MG TAB.ER.24 PO SCH (10:29)
[2019-08-26] MEDS: DIPHENHYDRAMINE 50 MG/ML, 1ML IM PRN ×2 (12:16→21:00)
[2019-08-26] MEDS: LORazepam 2 MG/ML, 1ML IV PRN ×2 (12:16→21:53)
[2019-08-26] MEDS: ENOXAPARIN 40 MG/0.4 ML SQ SCH (13:24)
[2019-08-26] MEDS: NICOTINE 21 MG/24 HR PATCH.TD24 TD SCH (13:24)
[2019-08-26 20:14] VITALS: BP 106/70
[2019-08-26 20:28] VITALS: BP 101/72
[2019-08-26] MEDS: BENZTROPINE 1 MG TABLET PO SCH (20:59)
[2019-08-27] MEDS: AMPICILLIN/SULBACTAM 3 GM in SODIUM CHLORIDE 0.9% 100 ML IV SCH ×4 (00:08→18:19)
[2019-08-27 01:56] VITALS: BP 90/53
[2019-08-27] MEDS: VANCOMYCIN 1,800 MG in SODIUM CHLORIDE 0.9% 250 ML IV SCH ×3 (04:47→21:24)
[2019-08-27 08:00] VITALS: BP 110/69
[2019-08-27] MEDS: PALIPERIDONE 3 MG TAB.ER.24 PO SCH (09:52)
[2019-08-27] MEDS: ENOXAPARIN 40 MG/0.4 ML SQ SCH (12:58)
[2019-08-27] MEDS: NICOTINE 21 MG/24 HR PATCH.TD24 TD SCH (12:58)
[2019-08-27 14:00] VITALS: BP 112/76
[2019-08-27] MEDS: LORazepam 2 MG/ML, 1ML IV PRN (14:02)
[2019-08-27] MEDS: BENZTROPINE 1 MG TABLET PO SCH (19:47)
[2019-08-27 20:26] VITALS: BP 119/72
[2019-08-27] MEDS: DIPHENHYDRAMINE 50 MG/ML, 1ML IM PRN ×2 (21:35→22:38)
[2019-08-28] MEDS: AMPICILLIN/SULBACTAM 3 GM in SODIUM CHLORIDE 0.9% 100 ML IV SCH ×5 (00:31→23:56)
[2019-08-28 01:38] VITALS: BP 110/65
[2019-08-28] MEDS: VANCOMYCIN 1,800 MG in SODIUM CHLORIDE 0.9% 250 ML IV SCH ×3 (05:00→21:11)
[2019-08-28 07:25] VITALS: BP 92/60
[2019-08-28] MEDS: PALIPERIDONE 3 MG TAB.ER.24 PO SCH (08:46)
[2019-08-28] MEDS: ENOXAPARIN 40 MG/0.4 ML SQ SCH (12:11)
[2019-08-28] MEDS: NICOTINE 21 MG/24 HR PATCH.TD24 TD SCH (12:11)
[2019-08-28 13:43] VITALS: BP 107/70
[2019-08-28 18:33] VITALS: BP 118/68
[2019-08-28] MEDS: BENZTROPINE 1 MG TABLET PO SCH (19:34)
[2019-08-28] MEDS: GABAPENTIN 300 MG CAPSULE PO PRN (21:05)
[2019-08-28] MEDS: LORazepam 2 MG/ML, 1ML IV PRN (21:06)
[2019-08-29] MEDS: VANCOMYCIN 1,800 MG in SODIUM CHLORIDE 0.9% 250 ML IV SCH ×3 (04:23→21:15)
[2019-08-29] MEDS: AMPICILLIN/SULBACTAM 3 GM in SODIUM CHLORIDE 0.9% 100 ML IV SCH ×3 (06:11→19:05)
[2019-08-29 07:30] VITALS: BP 91/60
[2019-08-29] MEDS: LORazepam 2 MG/ML, 1ML IV PRN ×2 (08:12→15:31)
[2019-08-29] MEDS: PALIPERIDONE 3 MG TAB.ER.24 PO SCH (08:12)
[2019-08-29] MEDS: NICOTINE 21 MG/24 HR PATCH.TD24 TD SCH (11:53)
[2019-08-29] MEDS: ENOXAPARIN 40 MG/0.4 ML SQ SCH (11:53)
[2019-08-29 14:07] VITALS: BP 108/63
[2019-08-29 18:27] VITALS: BP 122/79
[2019-08-29] MEDS: BENZTROPINE 1 MG TABLET PO SCH (21:15)
[2019-08-30] MEDS: AMPICILLIN/SULBACTAM 3 GM in SODIUM CHLORIDE 0.9% 100 ML IV SCH ×5 (00:36→23:59)
[2019-08-30] MEDS: LORazepam 2 MG/ML, 1ML IV PRN (00:36)
[2019-08-30 01:29] VITALS: BP 110/70
[2019-08-30] MEDS: VANCOMYCIN 1,800 MG in SODIUM CHLORIDE 0.9% 250 ML IV SCH ×3 (04:30→22:03)
[2019-08-30 07:57] VITALS: BP 91/43
[2019-08-30] MEDS: PALIPERIDONE 3 MG TAB.ER.24 PO SCH (09:58)
[2019-08-30 12:34] LABS: CREATININE 0.67 mg/dL (0.7-1.3)
[2019-08-30 13:14] VITALS: BP 112/72
[2019-08-30] MEDS: ENOXAPARIN 40 MG/0.4 ML SQ SCH (13:16)
[2019-08-30] MEDS: NICOTINE 21 MG/24 HR PATCH.TD24 TD SCH (13:16)
[2019-08-30 20:02] VITALS: BP 120/76
[2019-08-30] MEDS: GABAPENTIN 300 MG CAPSULE PO PRN (20:10)
[2019-08-30] MEDS: BENZTROPINE 1 MG TABLET PO SCH (20:10)
[2019-08-30 21:27] VITALS: BP 112/74
[2019-08-30] MEDS: ACETAMINOPHEN 325 MG TABLET PO PRN (23:40)
[2019-08-31 00:22] VITALS: BP 109/70
[2019-08-31 05:09] LABS: CREATININE 0.69 mg/dL (0.7-1.3)
[2019-08-31] MEDS: AMPICILLIN/SULBACTAM 3 GM in SODIUM CHLORIDE 0.9% 100 ML IV SCH ×3 (05:30→18:12)
[2019-08-31] MEDS: VANCOMYCIN 1,800 MG in SODIUM CHLORIDE 0.9% 250 ML IV SCH ×3 (06:04→20:46)
[2019-08-31 07:33] VITALS: BP 91/53
[2019-08-31] MEDS: PALIPERIDONE 3 MG TAB.ER.24 PO SCH (08:52)
[2019-08-31] MEDS: NICOTINE 21 MG/24 HR PATCH.TD24 TD SCH (12:00)
[2019-08-31] MEDS: ENOXAPARIN 40 MG/0.4 ML SQ SCH (12:01)
[2019-08-31 13:38] VITALS: BP 111/72
[2019-08-31 18:25] VITALS: BP 104/68
[2019-08-31] MEDS: BENZTROPINE 1 MG TABLET PO SCH (20:46)
[2019-09-01 00:06] VITALS: BP 99/77
[2019-09-01] MEDS: AMPICILLIN/SULBACTAM 3 GM in SODIUM CHLORIDE 0.9% 100 ML IV SCH ×4 (00:33→17:13)
[2019-09-01] MEDS: VANCOMYCIN 1,800 MG in SODIUM CHLORIDE 0.9% 250 ML IV SCH ×3 (04:41→20:58)
[2019-09-01 07:42] VITALS: BP 100/64
[2019-09-01] MEDS: PALIPERIDONE 3 MG TAB.ER.24 PO SCH (08:29)
[2019-09-01] MEDS: ENOXAPARIN 40 MG/0.4 ML SQ SCH (12:28)
[2019-09-01] MEDS: NICOTINE 21 MG/24 HR PATCH.TD24 TD SCH (12:28)
[2019-09-01 15:07] VITALS: BP 113/76
[2019-09-01 20:10] VITALS: BP 119/73
[2019-09-01] MEDS: BENZTROPINE 1 MG TABLET PO SCH (20:58)
[2019-09-02] MEDS: AMPICILLIN/SULBACTAM 3 GM in SODIUM CHLORIDE 0.9% 100 ML IV SCH ×4 (00:01→18:25)
[2019-09-02 00:18] VITALS: BP 113/78
[2019-09-02] MEDS: VANCOMYCIN 1,800 MG in SODIUM CHLORIDE 0.9% 250 ML IV SCH ×3 (05:11→21:04)
[2019-09-02 08:00] VITALS: BP 115/75
[2019-09-02] MEDS: PALIPERIDONE 3 MG TAB.ER.24 PO SCH (08:50)
[2019-09-02] MEDS: ENOXAPARIN 40 MG/0.4 ML SQ SCH (13:15)
[2019-09-02] MEDS: NICOTINE 21 MG/24 HR PATCH.TD24 TD SCH (13:15)
[2019-09-02 14:47] VITALS: BP 93/60
[2019-09-02 19:15] VITALS: BP 108/72
[2019-09-02] MEDS: LORazepam 2 MG/ML, 1ML IV PRN (20:16)
[2019-09-02] MEDS: BENZTROPINE 1 MG TABLET PO SCH (21:04)
[2019-09-03 00:27] VITALS: BP 105/74
[2019-09-03] MEDS: AMPICILLIN/SULBACTAM 3 GM in SODIUM CHLORIDE 0.9% 100 ML IV SCH ×4 (01:04→18:35)
[2019-09-03] MEDS: VANCOMYCIN 1,800 MG in SODIUM CHLORIDE 0.9% 250 ML IV SCH ×3 (04:53→20:51)
[2019-09-03 06:30] LABS: ANION GAP 6 mmol/L (5-15); CHLORIDE 110 mmol/L (98-107); CREATININE 0.78 mg/dL (0.7-1.3)
[2019-09-03 08:15] VITALS: BP 101/65
[2019-09-03] MEDS: PALIPERIDONE 3 MG TAB.ER.24 PO SCH (09:36)
[2019-09-03] MEDS: NICOTINE 21 MG/24 HR PATCH.TD24 TD SCH (11:47)
[2019-09-03] MEDS: ENOXAPARIN 40 MG/0.4 ML SQ SCH (11:48)
[2019-09-03 13:14] VITALS: BP 102/66
[2019-09-03] MEDS: ACETAMINOPHEN 325 MG TABLET PO PRN (13:48)
[2019-09-03] MEDS: LORazepam 2 MG/ML, 1ML IV PRN (14:46)
[2019-09-03 18:55] VITALS: BP 112/78
[2019-09-03] MEDS: BENZTROPINE 1 MG TABLET PO SCH (20:51)
[2019-09-04 00:14] VITALS: BP 110/72
[2019-09-04] MEDS: AMPICILLIN/SULBACTAM 3 GM in SODIUM CHLORIDE 0.9% 100 ML IV SCH ×4 (00:50→19:23)
[2019-09-04] MEDS: ACETAMINOPHEN 325 MG TABLET PO PRN ×2 (01:27→21:37)
[2019-09-04] MEDS: VANCOMYCIN 1,800 MG in SODIUM CHLORIDE 0.9% 250 ML IV SCH ×3 (05:07→21:28)
[2019-09-04] MEDS: PALIPERIDONE 3 MG TAB.ER.24 PO SCH (07:28)
[2019-09-04 08:15] VITALS: BP 108/70
[2019-09-04] MEDS: ENOXAPARIN 40 MG/0.4 ML SQ SCH (12:50)
[2019-09-04] MEDS: NICOTINE 21 MG/24 HR PATCH.TD24 TD SCH (12:51)
[2019-09-04 15:35] VITALS: BP 110/75
[2019-09-04 18:50] VITALS: BP 112/73
[2019-09-04] MEDS: LORazepam 2 MG/ML, 1ML IV PRN (19:24)
[2019-09-04] MEDS: BENZTROPINE 1 MG TABLET PO SCH (21:28)
[2019-09-04] MEDS: ZIPRASIDONE 20MG CAPSULE PO SCH (21:28)
[2019-09-05 01:52] VITALS: BP 101/66
[2019-09-05] MEDS: AMPICILLIN/SULBACTAM 3 GM in SODIUM CHLORIDE 0.9% 100 ML IV SCH ×4 (02:02→20:00)
[2019-09-05 04:43] LABS: MEAN CORPUSCULAR HEMOGLOBIN 28.6 pg (27.5-34.5); MEAN CORPUSCULAR HGB CONC 32.8 g/dL (33.2-36.2); MEAN CORPUSCULAR VOLUME 87.2 fL (81-97); MEAN PLATELET VOLUME 7.6 fL (7.4-10.4); PLATELET COUNT 281 x10^3/uL (130-400); RED BLOOD COUNT 4.81 x10^6/uL (4.38-5.82); RED CELL DISTRIBUTION WIDTH 13.3 % (9.4-14.8)
[2019-09-05 04:53] LABS: ANION GAP 5 mmol/L (5-15); CALCIUM 8.9 mg/dL (8.5-10.1); CHLORIDE 111 mmol/L (98-107); CREATININE 0.78 mg/dL (0.7-1.3)
[2019-09-05 04:56] LABS: VANCOMYCIN,TROUGH 27.1 mcg/mL (5.0-10.0)
[2019-09-05 05:48] LABS: MD YES
[2019-09-05 05:50] LABS: EOS% (MANUAL) 8 % (1-7); LYMPH#(MANUAL) 2.18 x10^3/uL (1-3.4); LYMPHS% (MANUAL) 59 % (22-44); MONOS% (MANUAL) 8 % (2-9); SEG#(MANUAL) 0.93 x10^3/uL (1.8-6.8); SEGS% (MANUAL) 25 % (42-75)
[2019-09-05 05:51] LABS: <PLATELET ESTIMATE> ADEQUATE; <PLT MORPHOLOGY> NORMAL PLT MORPH; <RBC MORPHOLOGY> NORMAL
[2019-09-05] MEDS: VANCOMYCIN 1,800 MG in SODIUM CHLORIDE 0.9% 250 ML IV SCH (06:09)
[2019-09-05 07:50] VITALS: BP 116/77
[2019-09-05] MEDS: ZIPRASIDONE 20MG CAPSULE PO SCH ×2 (08:26→20:02)
[2019-09-05] MEDS ORDERED: PALIPERIDONE PALMITATE 117 MG/0.75 ML ML IM ONE (09:00)
[2019-09-05] MEDS: NICOTINE 21 MG/24 HR PATCH.TD24 TD SCH (13:00)
[2019-09-05] MEDS: ENOXAPARIN 40 MG/0.4 ML SQ SCH (13:01)
[2019-09-05 13:50] VITALS: BP 110/74
[2019-09-05] MEDS: ACETAMINOPHEN 325 MG TABLET PO PRN (15:14)
[2019-09-05] MEDS ORDERED: VANCOMYCIN 1,800 MG in SODIUM CHLORIDE 0.9% 250 ML IV SCH (19:30)
[2019-09-05 19:54] VITALS: BP 123/78
[2019-09-05] MEDS: BENZTROPINE 1 MG TABLET PO SCH (20:02)
[2019-09-05] MEDS: VANCOMYCIN 1,600 MG in SODIUM CHLORIDE 0.9% 250 ML IV SCH (21:11)
[2019-09-06] MEDS: AMPICILLIN/SULBACTAM 3 GM in SODIUM CHLORIDE 0.9% 100 ML IV SCH ×4 (01:57→22:26)
[2019-09-06] MEDS: VANCOMYCIN 1,600 MG in SODIUM CHLORIDE 0.9% 250 ML IV SCH ×3 (05:01→20:50)
[2019-09-06 05:43] LABS: CREATININE 0.81 mg/dL (0.7-1.3)
[2019-09-06 08:11] VITALS: BP 100/66
[2019-09-06] MEDS: ZIPRASIDONE 20MG CAPSULE PO SCH ×2 (09:26→20:50)
[2019-09-06] MEDS: ENOXAPARIN 40 MG/0.4 ML SQ SCH (12:54)
[2019-09-06] MEDS: NICOTINE 21 MG/24 HR PATCH.TD24 TD SCH (12:54)
[2019-09-06 13:04] VITALS: BP 101/69
[2019-09-06 19:23] VITALS: BP 110/75
[2019-09-06] MEDS: BENZTROPINE 1 MG TABLET PO SCH (20:50)
[2019-09-07 00:30] VITALS: BP 110/68
[2019-09-07] MEDS: AMPICILLIN/SULBACTAM 3 GM in SODIUM CHLORIDE 0.9% 100 ML IV SCH ×4 (04:19→22:20)
[2019-09-07] MEDS: VANCOMYCIN 1,600 MG in SODIUM CHLORIDE 0.9% 250 ML IV SCH ×3 (05:04→22:22)
[2019-09-07 06:21] LABS: MEAN CORPUSCULAR HEMOGLOBIN 28.5 pg (27.5-34.5); MEAN CORPUSCULAR HGB CONC 32.9 g/dL (33.2-36.2); MEAN CORPUSCULAR VOLUME 86.6 fL (81-97); MEAN PLATELET VOLUME 7.6 fL (7.4-10.4); PLATELET COUNT 269 x10^3/uL (130-400); RED BLOOD COUNT 4.72 x10^6/uL (4.38-5.82); RED CELL DISTRIBUTION WIDTH 13.2 % (9.4-14.8)
[2019-09-07 06:34] LABS: ALBUMIN 3.5 g/dL (3.4-5.0); ANION GAP 4 mmol/L (5-15); CALCIUM 8.9 mg/dL (8.5-10.1); CHLORIDE 110 mmol/L (98-107)
[2019-09-07 06:38] LABS: ALANINE AMINOTRANSFERASE 24 U/L (12-78); ALKALINE PHOSPHATASE 132 U/L (45-117); BILIRUBIN,TOTAL 0.3 mg/dL (0.2-1.0); CREATININE 0.89 mg/dL (0.7-1.3); TOTAL PROTEIN 6.9 g/dL (6.4-8.2)
[2019-09-07 06:40] LABS: MD YES
[2019-09-07 06:52] LABS: EOS#(MANUAL) 0.17 x10^3/uL (0.0-0.4); EOS% (MANUAL) 4 % (1-7); LYMPHS% (MANUAL) 69 % (22-44); MONOS#(MANUAL) 0.59 x10^3/uL (0.3-2.7); MONOS% (MANUAL) 14 % (2-9); REACTIVE LYMPHS # (MANUAL) 0.13 x10^3/uL (0-0); REACTIVE LYMPHS % (MANUAL) 3 % (0-0); SEG#(MANUAL) 0.42 x10^3/uL (1.8-6.8); SEGS% (MANUAL) 10 % (42-75)
[2019-09-07 06:53] LABS: <PLATELET ESTIMATE> ADEQUATE; <PLT MORPHOLOGY> NORMAL PLT MORPH; <RBC MORPHOLOGY> NORMAL
[2019-09-07 07:47] VITALS: BP 102/50
[2019-09-07] MEDS: ZIPRASIDONE 20MG CAPSULE PO SCH ×2 (10:13→21:07)
[2019-09-07] MEDS: NICOTINE 21 MG/24 HR PATCH.TD24 TD SCH (12:30)
[2019-09-07] MEDS: ENOXAPARIN 40 MG/0.4 ML SQ SCH (12:30)
[2019-09-07 13:33] VITALS: BP 141/77
[2019-09-07 18:56] VITALS: BP 102/62
[2019-09-07] MEDS: ACETAMINOPHEN 325 MG TABLET PO PRN (21:07)
[2019-09-07] MEDS: BENZTROPINE 1 MG TABLET PO SCH (21:07)
[2019-09-08 01:04] VITALS: BP 100/65
[2019-09-08] MEDS: ZIPRASIDONE 20MG CAPSULE PO SCH (08:34)
[2019-09-08 12:27] VITALS: BP 120/78
[2019-09-08] MEDS: NICOTINE 21 MG/24 HR PATCH.TD24 TD SCH (12:30)
[2019-09-08] MEDS: ENOXAPARIN 40 MG/0.4 ML SQ SCH (12:30)
[2019-09-08] MEDS ORDERED: BENZ1TAB61 PO (13:08)
[2019-09-08] MEDS ORDERED: ZIPR20CA3 PO (13:08)
[2019-09-08] MEDS ORDERED: PALI117D IM (13:11)
== END 2019-09-08 16:56 | disposition home or self-care (01) | DRG 920 ==
LOC: ED 08:37 → SUATTDRO 12:04 → EDIP 12:27 → 3N 13:37
PROVIDERS: ADMIT Internal Medicine; ATTEND Internal Medicine
DX: T85.79XA Infection and inflammatory reaction due to other internal prosthetic devices, implants and grafts, initial encounter (principal); L03.115 Cellulitis of right lower limb; M86.8X7 Other osteomyelitis, ankle and foot; E11.69 Type 2 diabetes mellitus with other specified complication; F41.9 Anxiety disorder, unspecified; F25.0 Schizoaffective disorder, bipolar type; F32.9 Major depressive disorder, single episode, unspecified; F17.200 Nicotine dependence, unspecified, uncomplicated; Z88.6 Allergy status to analgesic agent; Z91.14 Patient's other noncompliance with medication regimen; V18.4XXA Pedal cycle driver injured in noncollision transport accident in traffic accident, initial encounter; Z79.899 Other long term (current) drug therapy; Z83.3 Family history of diabetes mellitus; Z78.1 Physical restraint status
CPT/HCPCS: 36415; 80048; 80053; 80202; 80307; 81003; 82040; 82565; 84443; 85025; 85651; 86140; 87040; 93005; 99285; G0378; J0295; J1650; J3370; J3486; J1200; J1630; J2060; J2426; J7050; Q0177

== ENCOUNTER 2019-09-29 22:40 | Emergency (ER) | payer MEDICAID ==
[~2019-09-29] VITALS: Ht 185.4 cm; Wt 88.8 kg
[~2019-09-29 22:40] MED LIST changes: +PALI117D IM; +ZIPR20CA3 PO
[2019-09-29] MEDS ORDERED: MIDAZOLAM 1 MG/ML, 2ML ONE ×2 (22:44→22:46)
--- NOTE | 2019-09-29 22:50 | NUR ---
PT BIB [facility] FOR ACUTE PSYCHOSIS. PER EMS, PT WENT UP TO [employer] OFFICERS SAYING HE NEEDS HELP, WAS HAVING AUDITORY & VISUAL HALLUCINATIONS. HX OF SCHIZOPHRENIA. PT DID NOT ANSWER QUESTIONS ABOUT SI TO EMS. REPORTED HE HAS BEEN TAKING HIS PSYCH MEDS. MEDICATED WITH 5MG HALDOL IV EN ROUTE. UPON ARRIVAL TO ED, PT AGITATED, STANDING UP ON GURNEY, CRYING, STATES HE JUST WANTS TO GO TO SLEEP. ERP AT BS IMMEDIATELY. PT PULLED OUT HIS IV, BLEEDING CONTROLLED. PT MEDICATED WITH 4MG VERSED IM WITH ERP AT BS.
[2019-09-29] MEDS ORDERED: PLEASE ENTER HEIGHT AND WEIGHT MC SCH (23:00)
[2019-09-29] MEDS ORDERED: MIDAZOLAM 1 MG/ML, 5ML IVPush ONE (23:00)
--- NOTE | 2019-09-29 23:00 | NUR ---
PT RESTING IN PRONE POSITION ON GURNEY. SPO2/HR MONITOR IN PLACE. SITTER OUTSIDE ROOM AT ALL TIMES.
[2019-09-29 23:01] VITALS: BP 127/72
[2019-09-29 23:14] LABS: BASOPHILS # (AUTO) 0.06 x10^3/uL (0-0.1); BASOPHILS % (AUTO) 1 % (0-1); EOSINOPHILS # (AUTO) 0.18 x10^3/uL (0-0.4); EOSINOPHILS % (AUTO) 3 % (1-7); LYMPHOCYTES % (AUTO) 31 % (22-44); MD NO; MEAN CORPUSCULAR HEMOGLOBIN 28.2 pg (27.5-34.5); MEAN CORPUSCULAR HGB CONC 32.6 g/dL (33.2-36.2); MEAN PLATELET VOLUME 7.7 fL (7.4-10.4); MONOCYTES # (AUTO) 0.85 x10^3/uL (0.2-0.8); MONOCYTES % (AUTO) 12 % (2-9); NEUTROPHILS # (AUTO) 3.75 x10^3/uL (1.8-6.8); NEUTROPHILS % (AUTO) 53 % (42-75); PLATELET COUNT 287 x10^3/uL (130-400); RED CELL DISTRIBUTION WIDTH 14.1 % (9.4-14.8)
--- NOTE | 2019-09-29 23:20 | NUR ---
REPORTED TO RACHEL ALEXANDER.
[2019-09-29 23:22] LABS: ALBUMIN 3.3 g/dL (3.4-5.0); ANION GAP 9 mmol/L (5-15); CALCIUM 8.6 mg/dL (8.5-10.1); CHLORIDE 110 mmol/L (98-107); SALICYLATE LEVEL 3.7 mg/dL (2.8-20.0)
--- NOTE | 2019-09-29 23:25 | NUR ---
Pt laying prone w/ pulse ox attached, 95% RA. Pt appears to be sleeping at this time.
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
--- NOTE | 2019-09-30 03:58 | NUR ---
THROUGHPUT RN: DISCUSSED PT ACCEPTANCE WITH GRACIELA FROM [facility]. PT WILL NOT BE ACCEPTED THERE S/T INSURANCE. PACKETS TO BE SENT TO OTHER FACILITIES.
--- NOTE | 2019-09-30 03:59 | NUR ---
PATIENT IS RESTING COMFORTABLY ON STRETCHER SLEEPING, NAD, RN WILL CONTINUE TO MONITOR
--- NOTE | 2019-09-30 04:05 | NUR ---
THROUGHPUT RN: ADMISSION PACKETS FAXED TO [facility], [facility], AND [facility].
--- NOTE | 2019-09-30 04:47 | NUR ---
TP- pt is accepted to [facility]. Accepting [facility].
--- NOTE | 2019-09-30 05:40 | NUR ---
THROUGHPUT: TRANSPORT SCHEDULED WITH [facility]. [facility] CALLED FOR AUTHORIZATION. [id number]
--- NOTE | 2019-09-30 05:54 | NUR ---
report given to rafi
== END 2019-09-30 05:57 ==
LOC: ED 09-30 03:57
DX: F23 Brief psychotic disorder (principal); F17.210 Nicotine dependence, cigarettes, uncomplicated
CPT/HCPCS: 36415; 80048; 80307; 82040; 85025; 96374; 99285; 99406; J2250; 99284

== ENCOUNTER 2020-06-13 22:58 | Inpatient (IN) | payer MEDICAID ==
[~2020-06-13] VITALS: Ht 167.6 cm; Wt 82.0 kg
[~2020-06-13 22:58] MED LIST changes: -RISP2TAB3 PO; +RISP2TAB80 PO
--- NOTE | 2020-06-13 23:20 | NUR ---
PT JASON FRIAS TO ROOM 3. [facility], PT WAS BEING RELEASED FROM [facility], BUT HIS INJURY NEEDED TO BE CHECKED OUT PRIOR TO RELEASE. PER THE L.E.O. THE PT IS NOT ON A LEGAL HOLD, AND CAN LEAVE OF HIS OWN ACCORD WHEN HE IS TREATED AND CLEARED. PER THE L.E.O. THEY HAVE TO FOLLOW THRU TO PROVIDE CARE AND PROVIDE MEDICAL CARE IF THE PT APPEARS TO NEED IT AND HE DID.
--- NOTE | 2020-06-13 23:29 | NUR ---
RESAW MACHINE OPERATOR TO BEDSIDE TO DRAW LAB. WARM BLANKETS PROVIDED TO PT, SIDERAILS UP X2 AND CALL LIGHT WITHIN REACH. POSITIVE PULSE TO RIGHT LOWER EXTREMITY, ABLE TO MOVE TOES, AND GERIATRIC PERSONAL CARE AIDE TO TOES IS LESS THAN 3 SECONDS. PT HAS PAIN ON WALKING, BUT IS ABLE TO STAND ON THE LEG, WITH DISCOMFORT. PAINFUL TO BEND KNEE PER PT.
[2020-06-13 23:41] LABS: BASOPHILS % (AUTO) 1 % (0-1); EOSINOPHILS % (AUTO) 0 % (1-7); LYMPHOCYTES % (AUTO) 9 % (22-44); MEAN CORPUSCULAR HEMOGLOBIN 29.6 pg (27.5-34.5); MEAN PLATELET VOLUME 7.4 fL (7.4-10.4); MONOCYTES % (AUTO) 10 % (2-9); NEUTROPHILS % (AUTO) 80 % (42-75); PLATELET COUNT 198 x10^3/uL (130-400); RED BLOOD COUNT 3.56 x10^6/uL (4.38-5.82); RED CELL DISTRIBUTION WIDTH 13.3 % (9.4-14.8)
[2020-06-13 23:42] LABS: MD NO
[2020-06-13 23:50] LABS: ANION GAP 5 mmol/L (5-15); CALCIUM 8.6 mg/dL (8.5-10.1); CHLORIDE 107 mmol/L (98-107)
--- NOTE | 2020-06-13 23:55 | NUR ---
PT TAKEN TO ULTRASOUND BY TECH. SLEEPING IN BED. NO ACUTE DISTRESS.
[2020-06-14] MEDS ORDERED: SODIUM CHLORIDE 0.9% 1,000ML IVBOLUS ONE
[2020-06-14] MEDS ORDERED: SODIUM CHLORIDE FLUSH 10ML SYR IVF ONE
[2020-06-14] MEDS ORDERED: PIPERACILLIN/TAZO/PMX 3.375GM 50 ML ONE (00:53)
[2020-06-14] MEDS ORDERED: POTASSIUM CHLORIDE 20 MEQ TAB.ER.PRT ONE (00:54)
[2020-06-14] MEDS ORDERED: VANCOMYCIN 1,700 MG in SODIUM CHLORIDE 0.9% 250 ML IV ONE (01:00)
[2020-06-14] MEDS ORDERED: LACTATED RINGERS 1,000 ML IVBOLUS ONE (01:00)
[2020-06-14] MEDS ORDERED: POTASSIUM CHLORIDE 20 MEQ TAB.ER.PRT PO ONE (01:00)
[2020-06-14] MEDS ORDERED: PIPERACILLIN/TAZO/PMX 3.375GM 50 ML IV ONE (01:00)
[2020-06-14] MEDS ORDERED: VANCOMYCIN PER PHARMACY MC ONE (01:00)
--- NOTE | 2020-06-14 01:09 | NUR ---
PIV TO LEFT HAND STARTED X1 ATTEMPT, 18G. PT CALM AND COOPERATIVE. IVF HUNG AND ANTIBIOTICS STARTED. PT PROVIDED WITH A SANDWICH AND CHIPS PER REQUEST. ABLE TO DRINK AND EAT REGULAR DIET, PER MD.
--- NOTE | 2020-06-14 02:06 | NUR ---
REPORT CALLED TO FLOOR RN, AND PT BEING PACKAGED FOR TRANSPORT.
[2020-06-14 02:39] VITALS: BP 117/79
[2020-06-14] MEDS ORDERED: ONDANSETRON 2MG/ML, 2ML IVPush PRN (03:30)
[2020-06-14] MEDS ORDERED: PHARMACOKINETIC MONITORING MC PRN (03:30)
[2020-06-14] MEDS ORDERED: DOCUSATE 100 MG CAPSULE PO PRN (03:30)
[2020-06-14] MEDS ORDERED: PROMETHAZINE 25 MG/ML, 1ML IM PRN (03:30)
[2020-06-14] MEDS ORDERED: BISACODYL 10 MG SUPP PR PRN (03:30)
[2020-06-14] MEDS ORDERED: SODIUM CHLORIDE 0.9% 1,000 ML IV SCH (03:30)
[2020-06-14] MEDS ORDERED: PHARMACOKINETIC CONSULTATION MC ONE (03:30)
[2020-06-14] MEDS ORDERED: POLYETHYLENE GLYCOL 17 GM PACKET PO PRN (03:30)
[2020-06-14] MEDS ORDERED: ONDANSETRON ODT 4 MG PO PRN (03:30)
[2020-06-14] MEDS ORDERED: VANCOMYCIN PER PHARMACY MC PRN (03:30)
[2020-06-14] MEDS ORDERED: hydrALAzine 20 MG/ML, 1ML IVPush PRN (03:30)
[2020-06-14] MEDS: ERTAPENEM 1 GM in SODIUM CHLORIDE 0.9% 50 ML IV SCH (03:34)
[2020-06-14] MEDS: ENOXAPARIN 40 MG/0.4 ML SQ SCH (03:34)
[2020-06-14] MEDS: OXYcodone IR 5MG TABLET PO PRN ×4 (03:35→20:41)
[2020-06-14 06:31] LABS: HCT (SEDRATE) 26.8 % (39.2-51.8)
[2020-06-14 06:45] VITALS: BP 107/73
[2020-06-14 06:59] LABS: FREE T4 (FREE THYROXINE) 1.24 ng/dL (0.76-1.46)
[2020-06-14] MEDS ORDERED: GADOTERATE 7.5 MMOL/15ML SYR ONE (10:30)
[2020-06-14] MEDS ORDERED: LORazepam 2 MG/ML, 1ML IVPush PRN (11:30)
[2020-06-14 12:50] VITALS: BP 108/78
[2020-06-14] MEDS: ACETAMINOPHEN 325 MG TABLET PO PRN (13:13)
[2020-06-14] MEDS: VANCOMYCIN 1,500 MG in SODIUM CHLORIDE 0.9% 250 ML IV SCH (13:13)
[2020-06-14] MEDS ORDERED: PALIPERIDONE PALMITATE 117 MG/0.75 ML ML IM SCH (16:00)
[2020-06-14 20:19] VITALS: BP 106/68
[2020-06-14] MEDS: ZIPRASIDONE 20MG CAPSULE PO SCH (20:41)
[2020-06-14] MEDS: BENZTROPINE 1 MG TABLET PO SCH (20:41)
[2020-06-15] MEDS: VANCOMYCIN 1,500 MG in SODIUM CHLORIDE 0.9% 250 ML IV SCH ×2 (01:11→12:45)
[2020-06-15 01:41] VITALS: BP 93/56
[2020-06-15] MEDS: ERTAPENEM 1 GM in SODIUM CHLORIDE 0.9% 50 ML IV SCH (03:21)
[2020-06-15] MEDS: ENOXAPARIN 40 MG/0.4 ML SQ SCH (03:24)
[2020-06-15] MEDS: ACETAMINOPHEN 325 MG TABLET PO PRN (04:56)
[2020-06-15 05:09] LABS: BASOPHILS % (AUTO) 0 % (0-1); EOSINOPHILS % (AUTO) 1 % (1-7); LYMPHOCYTES % (AUTO) 15 % (22-44); MEAN CORPUSCULAR HEMOGLOBIN 29.8 pg (27.5-34.5); MEAN CORPUSCULAR HGB CONC 34.1 g/dL (33.2-36.2); MEAN PLATELET VOLUME 7.6 fL (7.4-10.4); MONOCYTES % (AUTO) 7 % (2-9); NEUTROPHILS % (AUTO) 76 % (42-75); PLATELET COUNT 216 x10^3/uL (130-400); RED BLOOD COUNT 3.38 x10^6/uL (4.38-5.82); RED CELL DISTRIBUTION WIDTH 13.8 % (9.4-14.8)
[2020-06-15 05:19] LABS: MD NO
[2020-06-15 05:20] LABS: ALANINE AMINOTRANSFERASE 26 U/L (12-78); ALBUMIN 2.5 g/dL (3.4-5.0); ANION GAP 3 mmol/L (5-15); CALCIUM 8.5 mg/dL (8.5-10.1); CHLORIDE 109 mmol/L (98-107); CHOLESTEROL, TOTAL 81 mg/dL (140-239); CREATININE 0.54 mg/dL (0.7-1.3)
[2020-06-15 05:22] LABS: ALKALINE PHOSPHATASE 49 U/L (45-117); BILIRUBIN,TOTAL 0.3 mg/dL (0.2-1.0); CHOL/HDL RATIO 2.8; HDL CHOL % 36 % (26-37); HDL CHOLESTEROL (DIRECT) 29 mg/dL (40-60); LDL CHOLESTEROL,CALCULATED 45 mg/dL (54-169); LDL/HDL RATIO 1.6 (0.5-3.0); TOTAL PROTEIN 6.2 g/dL (6.4-8.2); TRIGLYCERIDES 36 mg/dL (50-200); VLDL CHOLESTEROL 7 mg/dL (0-25)
[2020-06-15 06:54] VITALS: BP 100/63
[2020-06-15] MEDS: ZIPRASIDONE 20MG CAPSULE PO SCH ×2 (09:40→20:31)
[2020-06-15] MEDS: HYDROXYZINE PAMOATE 25MG CAP PO SCH (09:41)
[2020-06-15 12:30] VITALS: BP 111/75
[2020-06-15] MEDS: BENZTROPINE 1 MG TABLET PO SCH (20:31)
[2020-06-15 20:36] VITALS: BP 118/72
[2020-06-16 00:29] LABS: BASOPHILS % (AUTO) 1 % (0-1); EOSINOPHILS % (AUTO) 4 % (1-7); LYMPHOCYTES % (AUTO) 24 % (22-44); MEAN CORPUSCULAR HGB CONC 34.5 g/dL (33.2-36.2); MEAN PLATELET VOLUME 6.7 fL (7.4-10.4); MONOCYTES % (AUTO) 7 % (2-9); NEUTROPHILS % (AUTO) 64 % (42-75); PLATELET COUNT 235 x10^3/uL (130-400); RED BLOOD COUNT 3.32 x10^6/uL (4.38-5.82); RED CELL DISTRIBUTION WIDTH 13.3 % (9.4-14.8)
[2020-06-16 00:30] LABS: MD NO
[2020-06-16 00:40] LABS: ANION GAP 5 mmol/L (5-15); CALCIUM 8.3 mg/dL (8.5-10.1); CHLORIDE 108 mmol/L (98-107); CREATININE 0.66 mg/dL (0.7-1.3)
[2020-06-16] MEDS: VANCOMYCIN 1,500 MG in SODIUM CHLORIDE 0.9% 250 ML IV SCH ×3 (00:43→17:11)
[2020-06-16 01:21] VITALS: BP 124/84
[2020-06-16] MEDS: ENOXAPARIN 40 MG/0.4 ML SQ SCH (03:09)
[2020-06-16] MEDS: ERTAPENEM 1 GM in SODIUM CHLORIDE 0.9% 50 ML IV SCH (03:10)
[2020-06-16] MEDS: OXYcodone IR 5MG TABLET PO PRN (03:45)
[2020-06-16 06:40] VITALS: BP 108/72
[2020-06-16] MEDS: ZIPRASIDONE 20MG CAPSULE PO SCH ×2 (08:50→19:59)
[2020-06-16] MEDS: HYDROXYZINE PAMOATE 25MG CAP PO SCH (08:50)
[2020-06-16 12:55] VITALS: BP 119/77
[2020-06-16 19:07] VITALS: BP 118/78
[2020-06-16] MEDS: BENZTROPINE 1 MG TABLET PO SCH (19:59)
[2020-06-17] MEDS: VANCOMYCIN 1,500 MG in SODIUM CHLORIDE 0.9% 250 ML IV SCH ×3 (00:48→17:18)
[2020-06-17 02:22] VITALS: BP 104/69
[2020-06-17] MEDS: ENOXAPARIN 40 MG/0.4 ML SQ SCH (03:00)
[2020-06-17] MEDS: ERTAPENEM 1 GM in SODIUM CHLORIDE 0.9% 50 ML IV SCH (03:02)
[2020-06-17 07:11] VITALS: BP 103/36
[2020-06-17 07:35] VITALS: BP 136/91
[2020-06-17] MEDS: ZIPRASIDONE 20MG CAPSULE PO SCH ×2 (08:16→20:01)
[2020-06-17] MEDS: HYDROXYZINE PAMOATE 25MG CAP PO SCH (08:17)
[2020-06-17 12:17] VITALS: BP 117/72
[2020-06-17 18:57] VITALS: BP 133/93
[2020-06-17] MEDS: BENZTROPINE 1 MG TABLET PO SCH (20:01)
[2020-06-18 00:23] VITALS: BP 114/75
[2020-06-18] MEDS: VANCOMYCIN 1,500 MG in SODIUM CHLORIDE 0.9% 250 ML IV SCH ×2 (00:47→08:31)
[2020-06-18] MEDS: ENOXAPARIN 40 MG/0.4 ML SQ SCH (02:55)
[2020-06-18] MEDS: ERTAPENEM 1 GM in SODIUM CHLORIDE 0.9% 50 ML IV SCH (03:19)
[2020-06-18 07:29] VITALS: BP 140/84
[2020-06-18] MEDS: HYDROXYZINE PAMOATE 25MG CAP PO SCH (08:31)
[2020-06-18] MEDS: ZIPRASIDONE 20MG CAPSULE PO SCH (08:31)
[2020-06-18] MEDS ORDERED: DOXY100T PO (10:03)
== END 2020-06-18 11:42 | disposition home or self-care (01) | DRG 603 ==
LOC: ED 06-14 01:18 → EDIP 06-14 01:40 → 3N 06-14 02:26
PROVIDERS: ADMIT Internal Medicine; ATTEND Internal Medicine
DX: L03.115 Cellulitis of right lower limb (principal); R45.851 Suicidal ideations; M86.8X6 Other osteomyelitis, lower leg; F17.200 Nicotine dependence, unspecified, uncomplicated; F25.9 Schizoaffective disorder, unspecified; F31.9 Bipolar disorder, unspecified; F41.1 Generalized anxiety disorder; Z91.19 Patient's noncompliance with other medical treatment and regimen; Z71.6 Tobacco abuse counseling; Z88.5 Allergy status to narcotic agent
CPT/HCPCS: 36415; 80048; 80053; 80061; 80202; 83036; 83605; 83735; 84100; 84145; 84439; 84443; 85025; 85651; 86140; 87040; 87081; 99285; G0378; J1335; J1650; J2543; J3370; A9575; J7030; J7050